=== PATIENT | male | born 1930 | race Caucasian/White ===

== ENCOUNTER → 2017-05-04 | Outpatient (CLI) | payer MEDICARE ==
--- NOTE | 2017-05-04 12:18 | US ---
EXAMINATION TYPE: US venous doppler duplex LE BI DATE OF EXAM: 05/04/2017 10:48 AM COMPARISON: NONE CLINICAL HISTORY: 87-year-old male M79.604 M79.605 Pain in bilateral legs. Bilateral diabetic foot ul cers x 2 months SIDE PERFORMED: Bilateral for venous insufficiency and DVT TECHNIQUE: The lower extremity deep venous system is examined utilizing real time linear array sonog taylor Doppler sonography and color-flow sonography. FINDINGS: VESSELS IMAGED: Common Femoral Vein Deep Femoral Vein Greater Saphenous Vein * Femoral Vein Popliteal Vein Small Saphenous Vein * Proximal Calf Veins (* superficial vessels) Right Leg: Negative for DVT. Valvular incompetency is noted throughout deep venous system except at Popliteal Vein and Upper Calf Veins. Left Leg: Stuck valve is noted at upper Left Femoral Vein, otherwise, is negative for DVT. Valvular incompetency noted throughout deep venous system except at upper Deep Femoral Vein. IMPRESSION: 1. No evidence for DVT within the bilateral lower extremities imaged from the groin to the upper calv es. 2. Extensive bilateral lower extremity venous insufficiency and reflux throughout as noted above. 3. 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
== END | disposition home or self-care (01) ==
LOC: RADUSWWP 09:51
PROVIDERS: ATTEND Internal Medicine Infectious Disease
DX: I87.2 Venous insufficiency (chronic) (peripheral) (principal)
CPT/HCPCS: 93922; 93970

== ENCOUNTER → 2017-05-26 | Outpatient (CLI) | payer MEDICARE ==
--- NOTE | 2017-05-26 12:39 | CT ---
EXAMINATION TYPE: CT pelvis wo con DATE OF EXAM: 05/26/2017 COMPARISON: NONE HISTORY: Pressure Ulcer Buttock CT DLP: [address] of the pelvis was performed. FINDINGS: There is small soft tissue ulceration right buttock. There is no evidence for underlying collection. Mild strandy attenuation is compatible with cellulitis. No evidence for abscess at this time. There i s evidence of prostate enlargement. Urinary bladder is unremarkable. Sigmoid diverticulosis without d iverticulitis. Nonobstructing calculus lower pole right kidney. Severe degenerative changes of the edith mbar spine and bilateral hips. IMPRESSION: There is small soft tissue ulceration right buttock. There is no evidence for underlying collection. Mild strandy attenuation is compatible with cellulitis.
== END | disposition home or self-care (01) ==
LOC: RADCTMAIN 11:47
PROVIDERS: ATTEND Surgery
DX: L89.313 Pressure ulcer of right buttock, stage 3 (principal)
CPT/HCPCS: 72192

== ENCOUNTER 2017-06-23 11:33 | Day surgery (SDC) | payer MEDICARE ==
[2017-06-17 11:17] VITALS: BMI 36.3
[~2017-06-23 11:33] MED LIST: DEXAMETHASONE SOD PHOSPHATE 10 MG/ML 1 ML VIAL IV ONE; HYDROmorphone 1 MG/ML 1 ML SYRINGE IVP PRN; LACTATED RINGERS 1,000 ML IV SCH; LIDOCAINE 1% 20 ML VIAL (10MG/ML) FOR IV START INTRADERMA PRN; MIDAZOLAM 2 MG/2 ML VIAL IV PRN; ONDANSETRON 4 MG/2 ML VIAL IVP ONE; Pre Op ABX Message 1 EACH MISC MISCELLANE ONE; SCOPOLAMINE 1.5MG/72HR PATCH TRANSDERM ONE
[2017-06-23] MEDS ORDERED: LACTATED RINGERS 1,000 ML IV ONE (11:51)
[2017-06-23 12:15] LABS: Glucose,Whole Blood 127 mg/dL (75-99)
[2017-06-23] MEDS ORDERED: HEPARIN SODIUM,PORCINE 5,000 UNIT/ML 1 ML VIAL SQ ONE (12:23)
[2017-06-23] MEDS ORDERED: LEVOFLOXACIN 500MG-D5W PMX 500 MG in DEXTROSE/WATER 1 100ML.BAG IVPB STA (12:24)
--- NOTE | 2017-06-23 12:24 | P.GSHP ---
History of Present Illness H&P Date: 06/23/17 Chief Complaint: decubitis ulcer of right upper back stage 3 Patient is a 87-year-old gentleman with a very poor history. He presents with multiple lower extremity ulcers as well as the back ulcer. His significant amount of pain in his back wound and does not recall how he got this wound. He is here for consultation for possible debridement. The patient at this time and not amenable to debridement for sampling at all. He's never seen a masticator in the past. - Review of Systems ROS unobtainable: Reports: due to mental status Past Medical History Past Medical History: Diabetes Mellitus, Hypertension Additional Past Medical History / Comment(s): gout, wound on rt hip area, History of Any Multi-Drug Resistant Organisms: None Reported Past Surgical History: Adenoidectomy, Tonsillectomy Additional Past Surgical History / Comment(s): hunter cataract extraction Past Anesthesia/Blood Transfusion Reactions: No Reported Reaction Smoking Status: Current every day smoker - Past Family History Father Family Medical History: Diabetes Mellitus Mother Family Medical History: Cancer Medications and Allergies Home Medications Medication Instructions Recorded Confirmed Type Allopurinol [Zyloprim] 300 mg PO DAILY 04/06/17 06/17/17 History Aspirin [Adult Low Dose Aspirin EC] 81 mg PO DAILY 04/06/17 06/17/17 History Atenolol 100 mg PO DAILY 04/06/17 06/17/17 History sitaGLIPtin PHOS/metFORMIN HCL 1 each PO BID 04/06/17 06/17/17 History [Janumet 50-1,000 mg Tablet] Calcium Carbonate [Calcium] 600 mg PO DAILY 06/17/17 06/17/17 History Multivitamins, Thera [Multivitamin 1 tab PO DAILY 06/17/17 06/17/17 History (formulary)] Allergies Allergy/AdvReac Type Severity Reaction Status Date / Time No Known Allergies Allergy Verified 06/17/17 11:06 Surgical - Exam Vital Signs Temp Pulse Resp BP Pulse Ox 97.8 F 76 18 113/75 98 06/23/17 11:49 06/23/17 11:49 06/23/17 11:49 06/23/17 11:49 06/23/17 11:49 - General well nourished, no distress - Eyes PERRL, normal ocular movement - ENT normal pinna - Respiratory normal expansion, normal respiratory effort - Abdomen right upper back has a 5 x 4 cm wound with signifcant amoutn of foul smelling slough Abdomen: soft Results - Labs Abnormal Lab Results - Last 24 Hours (Table) 06/23/17 Range/Units 12:05 POC Glucose (mg/dL) 127 H (75-99) mg/dL - Imaging Additional studies: culture sensitive to ciprofloxacin Assessment and Plan (1) Pressure ulcer, unstageable, with eschar Status: Acute Plan: The wound is imporving and had a wound vac in place. Will debride wound in the operating room today and then repalce wound vac. has been cleared by cardiology overall remains high risk
[2017-06-23] MEDS ORDERED: HEPARIN SODIUM,PORCINE 5,000 UNIT/ML 1 ML VIAL ONE (12:34)
[2017-06-23] MEDS ORDERED: PROPOFOL 10 MG/ML 20 ML VIAL IV ONE (12:34)
[2017-06-23] MEDS ORDERED: ePHEDrine SULFATE/0.9% NACL/PF 50 MG/5 ML SYRINGE IV ONE (12:34)
[2017-06-23] MEDS ORDERED: LIDOCAINE 1% INJ 10MG/ML (20 ML MDV) ONE (12:34)
[2017-06-23] MEDS ORDERED: fentaNYL (PF) 50 MCG/ML 2 ML AMP ONE (12:34)
[2017-06-23] MEDS ORDERED: BUPIVACAINE (PF) 0.25% 30 ML VIAL SQ ONE (12:50)
[2017-06-23 13:23] VITALS: TEMP 98.4
[2017-06-23 13:23] LABS: Glucose,Whole Blood 152 mg/dL (75-99)
--- NOTE | 2017-06-23 13:46 | P.OP ---
Date of Procedure: 06/23/17 Preoperative Diagnosis: Stage 3 decubitus ulcer of the right lower back Postoperative Diagnosis: Stage 3 decubitus ulcer of the right lower back Procedure(s) Performed: Sharp Excisional debridement of the wound with curette, metzenbaum and electrocautery and placement of Wound vac dressing. Implants: Condition: stable Disposition: PACU Indications for Procedure: Operative Findings: Necrotic fat and tissue extending to the fascia covering the bone Wound measured 2.6 x 1.6 x 1.6 with 3 cm undermining in the 1 oclock and 9 o clock position It was deep to the fascia covering the bone. Description of Procedure: After obtaining informed consent patient was taken to the operating room and placed in the left lateral decubitus position. After appropriate timeout, the patient was given IV sedation. The vac dressing was removed. The area was prepped and draped in the usual sterile surgical fashion. The necrotic material in the base was grabbed with and sita forceps and pulled up . The necrotic fatty tissue in the base was all excised meticulously with sharp metzenbaum, electrocautery, and currete. This debridement extended to the superficial part of the fasica covering the bone. The wound was then thoroughly irrigated and hemostasis was secured with electrocautery. The wound was then dresseded with 2 barrett sponges and vac was pllied with good suction and no leakage. the patient tolerated the procedure well and there were no complications. He was extubated and taken to recovery room in stable condition. Plan - Discharge Summary New Discharge Prescriptions: New Ciprofloxacin HCl [Cipro] 500 mg PO Q12HR #28 tablet No Action Atenolol 100 mg PO DAILY sitaGLIPtin PHOS/metFORMIN HCL [Janumet 50-1,000 mg Tablet] 1 each PO BID Aspirin [Adult Low Dose Aspirin EC] 81 mg PO DAILY Allopurinol [Zyloprim] 300 mg PO DAILY Multivitamins, Thera [Multivitamin (formulary)] 1 tab PO DAILY Calcium Carbonate [Calcium] 600 mg PO DAILY Discharge Medication List Allopurinol [Zyloprim] 300 mg PO DAILY 04/06/17 [History] Aspirin [Adult Low Dose Aspirin EC] 81 mg PO DAILY 04/06/17 [History] Atenolol 100 mg PO DAILY 04/06/17 [History] sitaGLIPtin PHOS/metFORMIN HCL [Janumet 50-1,000 mg Tablet] 1 each PO BID [History] Calcium Carbonate [Calcium] 600 mg PO DAILY 06/17/17 [History] Multivitamins, Thera [Multivitamin (formulary)] 1 tab PO DAILY 06/17/17 [History ] Ciprofloxacin HCl [Cipro] 500 mg PO Q12HR #28 tablet 06/23/17 [Rx] Follow up Appointment(s)/Referral(s): Alexys Ortiz MD [STAFF PHYSICIAN] - 1 Week (in wound care clinic) Activity/Diet/Wound Care/Special Instructions: regular diet Discharge Disposition: OTHER INSTITUTION NOT DEFINED
[2017-06-23 14:05] VITALS: BP 98/57; PULSE 81; RESP 16
== END 2017-06-23 14:55 | disposition other institution (70) ==
LOC: OR 11:33
PROVIDERS: ATTEND Surgery
DX: L89.133 Pressure ulcer of right lower back, stage 3 (principal); I10 Essential (primary) hypertension; E11.9 Type 2 diabetes mellitus without complications; Z79.84 Long term (current) use of oral hypoglycemic drugs; K21.9 Gastro-esophageal reflux disease without esophagitis; M10.9 Gout, unspecified; I25.2 Old myocardial infarction; Z79.82 Long term (current) use of aspirin; Z79.899 Other long term (current) drug therapy
CPT/HCPCS: 84132; 87070; 87205; 87075; 87077; 87186; 11043; J1644; J1100; J2405; J1956; J2001; J3010; J2704

== ENCOUNTER 2018-01-14 10:50 | Inpatient (IN) | payer MEDICARE ==
--- NOTE | 2018-01-14 11:21 | ED ---
General Adult HPI - General Stated complaint: weakness Time Seen by Provider: 01/14/18 10:50 Source: RN notes reviewed - History of Present Illness Initial comments: This is an 87-year-old male who presents to the emergency department complaining of generalized weakness. Patient states she's unable family started getting weak last night but this morning was unable to ambulate as his legs gave out. Patient denies any pain. Patient denies headache patient denies numbness weakness. Patient denies lightheadedness dizziness or near syncopal episode. Patient denies chest pain difficulty breathing first breath per patient denies abdominal pain patient denies nausea vomiting diarrhea. Patient denies any recent injury or trauma. - Related Data Home Medications Medication Instructions Recorded Confirmed Allopurinol [Zyloprim] 300 mg PO DAILY 04/06/17 01/14/18 Atenolol 100 mg PO DAILY 04/06/17 01/14/18 sitaGLIPtin PHOS/metFORMIN HCL 1 tab PO BID 04/06/17 01/14/18 [Janumet 50-1,000 mg Tablet] Atorvastatin [Lipitor] 10 mg PO DAILY 01/14/18 01/14/18 Allergies Allergy/AdvReac Type Severity Reaction Status Date / Time No Known Allergies Allergy Verified 09/21/17 10:05 Review of Systems ROS Statement: Those systems with pertinent positive or pertinent negative responses have been documented in the HPI. ROS Other: All systems not noted in ROS Statement are negative. Past Medical History Past Medical History: Diabetes Mellitus, Hypertension Additional Past Medical History / Comment(s): gout, wound on rt hip area, History of Any Multi-Drug Resistant Organisms: None Reported Past Surgical History: Adenoidectomy, Tonsillectomy Additional Past Surgical History / Comment(s): hunter cataract extraction Past Anesthesia/Blood Transfusion Reactions: No Reported Reaction Past Alcohol Use History: None Reported Additional Past Alcohol Use History / Comment(s): started smoking cigars since age 11, currently using pipe-"couple daily" Past Drug Use History: None Reported - Past Family History Father Family Medical History: Diabetes Mellitus Mother Family Medical History: Cancer General Exam - General Exam Comments Initial Comments: GENERAL: Patient is well-developed and well-nourished. Patient is nontoxic and well- hydrated and is in no acute distress. ENT: Neck is soft and supple. No significant lymphadenopathy is noted. Oropharynx is clear. Moist mucous membranes. Neck has full range of motion without eliciting any pain. EYES: The sclera were anicteric and conjunctiva were pink and moist. Extraocular movements were intact and pupils were equal round and reactive to light. Eyelids were unremarkable. PULMONARY: Unlabored respirations. Good breath sounds bilaterally. No audible rales rhonchi or wheezing was noted. CARDIOVASCULAR: There is a regular rate and rhythm without any murmurs gallops or rubs. ABDOMEN: Soft and nontender with normal bowel sounds. No palpable organomegaly was noted. There is no palpable pulsatile mass. SKIN: Patient has a stage II wound on his left buttocks which she is appears to have some cellulitis around it as well. NEUROLOGIC: Patient is alert and oriented x3. Cranial nerves II through XII are grossly intact. Motor and sensory are also intact. Normal speech, volume and content. Symmetrical smile. MUSCULOSKELETAL: Normal extremities with adequate strength and full range of motion. 2+ edema bilaterally LYMPHATICS: No significant lymphadenopathy is noted PSYCHIATRIC: Normal psychiatric evaluation. Course Vital Signs 01/14/18 01/14/18 11:00 14:10 Temperature 94.5 F L Pulse Rate 71 53 L Respiratory 18 20 Rate Blood Pressure 113/65 114/71 O2 Sat by Pulse 98 97 Oximetry Medical Decision Making - Lab Data Result diagrams: 01/14/18 11:46 01/14/18 11:46 Lab Results 01/14/18 01/14/18 01/14/18 Range/Units 11:44 11:46 11:46 WBC 4.7 (3.8-10.6) k/uL RBC 3.95 L (4.30-5.90) m/uL Hgb 10.8 L (13.0-17.5) gm/dL Hct 34.4 L (39.0-53.0) % MCV 87.0 (80.0-100.0) fL MCH 27.4 (25.0-35.0) pg MCHC 31.5 (31.0-37.0) g/dL RDW 16.9 H (11.5-15.5) % Plt Count 200 (150-450) k/uL Hypochromasia Slight Anisocytosis Slight PT (9.0-12.0) sec INR (<1.2) APTT (22.0-30.0) sec Sodium 138 (137-145) mmol/L Potassium 4.8 (3.5-5.1) mmol/L Chloride 100 (98-107) mmol/L Carbon Dioxide 31 H (22-30) mmol/L Anion Gap 7 mmol/L BUN 38 H (9-20) mg/dL Creatinine 0.72 (0.66-1.25) mg/dL Est GFR (CKD-EPI)AfAm >90 (>60 ml/min/1.73 sqM) Est GFR (CKD-EPI)NonAf 84 (>60 ml/min/1.73 sqM) Glucose 170 H (74-99) mg/dL Plasma Lactic Acid Brandon 2.1 H* (0.7-2.0) mmol/L Calcium 9.3 (8.4-10.2) mg/dL Magnesium 1.8 (1.6-2.3) mg/dL Total Bilirubin 0.3 (0.2-1.3) mg/dL AST 49 (17-59) U/L ALT 49 (21-72) U/L Alkaline Phosphatase 107 (38-126) U/L Total Creatine Kinase (55-170) U/L CK-MB (CK-2) (0.0-2.4) ng/mL CK-MB (CK-2) Rel Index Total Protein 7.0 (6.3-8.2) g/dL Albumin 3.0 L (3.5-5.0) g/dL 01/14/18 01/14/18 Range/Units 11:46 11:46 WBC (3.8-10.6) k/uL RBC (4.30-5.90) m/uL Hgb (13.0-17.5) gm/dL Hct (39.0-53.0) % MCV (80.0-100.0) fL MCH (25.0-35.0) pg MCHC (31.0-37.0) g/dL RDW (11.5-15.5) % Plt Count (150-450) k/uL Hypochromasia Anisocytosis PT 11.2 (9.0-12.0) sec INR 1.2 H (<1.2) APTT 25.8 (22.0-30.0) sec Sodium (137-145) mmol/L Potassium (3.5-5.1) mmol/L Chloride (98-107) mmol/L Carbon Dioxide (22-30) mmol/L Anion Gap mmol/L BUN (9-20) mg/dL Creatinine (0.66-1.25) mg/dL Est GFR (CKD-EPI)AfAm (>60 ml/min/1.73 sqM) Est GFR (CKD-EPI)NonAf (>60 ml/min/1.73 sqM) Glucose (74-99) mg/dL Plasma Lactic Acid Brandon (0.7-2.0) mmol/L Calcium (8.4-10.2) mg/dL Magnesium (1.6-2.3) mg/dL Total Bilirubin (0.2-1.3) mg/dL AST (17-59) U/L ALT (21-72) U/L Alkaline Phosphatase (38-126) U/L Total Creatine Kinase 89 (55-170) U/L CK-MB (CK-2) 5.2 H* (0.0-2.4) ng/mL CK-MB (CK-2) Rel Index 5.8 Total Protein (6.3-8.2) g/dL Albumin (3.5-5.0) g/dL Disposition Clinical Impression: Decubitus ulcer, stage 2 with infection Disposition: ADMITTED IP TO THIS HOSP Referrals: Washington Hatfield MD [Primary Care Provider] - 1-2 days Time of Disposition: 14:45
[2018-01-14] MEDS ORDERED: SODIUM CHLORIDE 0.9% 500 ML IV ONE (12:30)
[2018-01-14] MEDS ORDERED: LEVOFLOXACIN 750MG-D5W PMX 750 MG in DEXTROSE/WATER 1 150ML.BAG IVPB STA (12:49)
[2018-01-14 13:06] LABS: Anisocytosis Slight; HCT 34.4 % (39.0-53.0); HGB 10.8 gm/dL (13.0-17.5); Hypochromasia Slight; MCH 27.4 pg (25.0-35.0); MCHC 31.5 g/dL (31.0-37.0); Mean Platelet Volume 7.9; Platelet Count 200 k/uL (150-450); RBC 3.95 m/uL (4.30-5.90); RDW 16.9 % (11.5-15.5); WBC 4.7 k/uL (3.8-10.6)
--- NOTE | 2018-01-14 13:06 | XR ---
EXAMINATION TYPE: XR pelvis AP view DATE OF EXAM: 01/14/2018 COMPARISON: NONE HISTORY: Pain The osseous structures are intact and there is severe arthropathy of the shoulders. There is severe d egenerative change lower lumbar spine. Vascular calcifications are noted. Retained fecal debris in th e colon. No acute fracture is seen. Visualized bowel gas pattern is nonspecific. IMPRESSION: 1. No acute fracture. Correlate for fecal impaction. 2. Severe arthropathy of the hips
[2018-01-14 13:08] LABS: ALT 49 U/L (21-72); AST 49 U/L (17-59); Alkaline Phosphatase 107 U/L (38-126); Anion Gap 7 mmol/L; Blood Urea Nitrogen 38 mg/dL (9-20); Calcium 9.3 mg/dL (8.4-10.2); Carbon Dioxide 31 mmol/L (22-30); Chloride 100 mmol/L (98-107); Glucose 170 mg/dL (74-99); Magnesium 1.8 mg/dL (1.6-2.3); Potassium 4.8 mmol/L (3.5-5.1); Sodium 138 mmol/L (137-145); Total Bilirubin 0.3 mg/dL (0.2-1.3)
[2018-01-14 13:15] LABS: INR 1.2 (<1.2); Partial Thromboplastin Time 25.8 sec (22.0-30.0); Prothrombin Time 11.2 sec (9.0-12.0)
[2018-01-14 13:34] LABS: Creatine Kinase MB 5.2 ng/mL (0.0-2.4)
[2018-01-14] MEDS ORDERED: SODIUM CHLORIDE 0.9% 1,000 ML IV ONE (14:45)
[2018-01-14 18:26] LABS: T4, Free (Free Thyroxine) 1.49 ng/dL (0.78-2.19)
[2018-01-14 19:03] LABS: Glucose,Whole Blood 85 mg/dL (75-99)
[2018-01-14] MEDS ORDERED: PNEUMOCOCCAL VACC-PNEUMOVAX 23 25 MCG/0.5 ML VIAL IM ONE (19:59)
[2018-01-14] MEDS: LEVOFLOXACIN 750MG-D5W PMX 750 MG in DEXTROSE/WATER 1 150ML.BAG IVPB SCH (20:37)
[2018-01-14] MEDS ORDERED: NALOXONE 0.4 MG/ML 1 ML VIAL IV PRN (22:21)
[2018-01-14 22:45] LABS: Appearance,Urine Clear (Clear); Bilirubin,Urine Negative (Negative); Blood,Urine Negative (Negative); Color,Urine Yellow; Glucose,Urine (UA) Negative (Negative); Ketones,Urine Negative (Negative); Leukocyte Esterase,Urine Negative (Negative); Nitrite,Urine Negative (Negative); PH, Urine 6.5 (5.0-8.0); Protein,Urine Negative (Negative); Specific Gravity,Urine 1.018 (1.001-1.035); Urobilinogen,Urine <2.0 mg/dL (<2.0)
[2018-01-15 05:04] LABS: Anisocytosis Slight; Basophils % (A) 1 %; Eosinophils # (A) 0.1 k/uL (0-0.7); Eosinophils % (A) 2 %; HCT 32.1 % (39.0-53.0); HGB 10.3 gm/dL (13.0-17.5); Hypochromasia Slight; Lymphocytes # (A) 0.8 k/uL (1.0-4.8); Lymphocytes % (A) 20 %; MCH 27.9 pg (25.0-35.0); MCHC 32.1 g/dL (31.0-37.0); MCV 86.9 fL (80.0-100.0); Mean Platelet Volume 7.5; Monocytes # (A) 0.3 k/uL (0-1.0); Monocytes % (A) 7 %; Neutrophils # (A) 2.8 k/uL (1.3-7.7); Neutrophils % (A) 69 %; Platelet Count 184 k/uL (150-450); RDW 16.5 % (11.5-15.5); WBC 4.1 k/uL (3.8-10.6)
[2018-01-15 05:17] LABS: Magnesium 1.8 mg/dL (1.6-2.3); Phosphorus 3.6 mg/dL (2.5-4.5); Potassium 5.1 mmol/L (3.5-5.1)
[2018-01-15] MEDS: SODIUM CHLORIDE 0.9% 1,000 ML IV SCH ×3 (08:39→23:46)
[2018-01-15] MEDS: PANTOPRAZOLE 40 MG/10 ML VIAL IVP SCH (09:02)
[2018-01-15] MEDS: ENOXAPARIN 40 MG/0.4 ML SYRINGE SQ SCH (09:02)
[2018-01-15 10:25] VITALS: BMI 26.6
--- NOTE | 2018-01-15 12:33 | P.HPIM ---
History of Present Illness H&P Date: 01/15/18 Chief Complaint: Weakness and falls This is a 87-year-old male with a known history of diabetes mellitus, hypertension, gout, bilateral feet ulcers and decubitus ulcer of the buttocks. Patient initially presented to the emergency room with generalized weakness, some confusion and falling. Also had evidence of hypothermia. Required admission to the ICU. Hypothermia has resolved. Patient was started on Levaquin for his infected decubitus stage II ulcer. Infectious disease been consulted. Wound cultures have been obtained. Patient had a pelvic x-ray completed no evidence of fractures. Does show some fecal impaction. Urinalysis is negative. Patient is also been hypotensive his atenolol as been on hold and has been placed IV fluids. Pulmonary is been consulted for ICU management. Patient denies any chest pain or shortness breath. Denies any nausea or vomiting. Denies any urinary symptoms. He reports he had some diarrhea couple days ago but then has not had a bowel movement since. Denies Any abdominal pain. Review of Systems Please refer to HPI otherwise unremarkable Past Medical History Past Medical History: Diabetes Mellitus, Hyperlipidemia, Hypertension Additional Past Medical History / Comment(s): gout, past wound on rt hip/back area, foot. diverticular disease sigmoid region per [address] scan History of Any Multi-Drug Resistant Organisms: None Reported Past Surgical History: Adenoidectomy, Tonsillectomy Additional Past Surgical History / Comment(s): hunter cataract extraction, 06/2017 surgical excisonal debridment of stage 3 decub ulcer rt lower back Past Anesthesia/Blood Transfusion Reactions: No Reported Reaction Smoking Status: Current every day smoker - Past Family History Father Family Medical History: Diabetes Mellitus Mother Family Medical History: Cancer Medications and Allergies Home Medications Medication Instructions Recorded Confirmed Type Allopurinol [Zyloprim] 300 mg PO DAILY 04/06/17 01/14/18 History Atenolol 100 mg PO DAILY 04/06/17 01/14/18 History sitaGLIPtin PHOS/metFORMIN HCL 1 tab PO BID 04/06/17 01/14/18 History [Janumet 50-1,000 mg Tablet] Atorvastatin [Lipitor] 10 mg PO DAILY 01/14/18 01/14/18 History Allergies Allergy/AdvReac Type Severity Reaction Status Date / Time No Known Allergies Allergy Verified 01/14/18 22:20 Physical Exam Vitals: Vital Signs Temp Pulse Pulse Resp BP BP Pulse Ox 01/15/18 10:00 70 23 97/61 92 L 01/15/18 09:00 68 20 97/63 95 01/15/18 08:00 97.7 F 64 20 89/64 97 01/15/18 07:00 61 19 94/55 100 01/15/18 06:00 64 18 91/59 97 01/15/18 05:00 65 20 90/67 97 01/15/18 04:00 97.8 F 66 17 98/66 97 01/15/18 03:00 69 22 93/63 98 01/15/18 02:00 72 20 97/61 97 01/15/18 01:00 75 16 97/61 96 01/15/18 00:00 99.0 F 72 16 92/62 97 01/14/18 23:30 72 20 94/60 97 01/14/18 23:00 72 20 94/60 98 01/14/18 22:00 98.6 F 72 22 87/58 97 01/14/18 21:00 70 18 88/55 98 01/14/18 20:00 97.7 F 66 20 104/62 95 01/14/18 19:04 97.0 F L 54 L 18 110/70 98 01/14/18 19:00 95.9 F L 68 22 102/64 95 01/14/18 18:18 96.6 F L 58 L 18 108/67 95 01/14/18 16:52 93.7 F L 51 L 16 99/66 98 01/14/18 16:05 93.8 F L 01/14/18 16:04 52 L 16 100/66 97 01/14/18 15:26 95.3 F L 53 L 16 104/67 98 01/14/18 14:10 53 L 20 114/71 97 Intake and Output 01/14/18 01/15/18 01/15/18 22:59 06:59 14:59 Intake Total 520 800 700 Output Total 850 Balance -330 800 700 Intake: IV 400 800 450 Sodium Chloride 0.9% 1, 400 800 450 000 ml @ 100 mls/hr IV . Q10H ONE Rx#:[id number] Oral 120 250 Output: Urine 850 Other: Voiding Method Urinal Incontinent Incontinent # Voids 1 Weight 93.4 kg 94.1 kg 94.1 kg Head normocephalic Neck supple Lungs clear to auscultation bilaterally no wheezing or crackles Heart regular rate and rhythm S1-S2, no rub or gallop Abdomen is soft nontender nondistended positive bowel sounds no hepatosplenomegaly Extremities no edema on the legs. Patient's feet have evidence of cellulitis changes some chronic ulcers noted on the plantar aspect of the feet. No evidence of any drainage. Some mild swelling of the feet 2. Also patient has worked with physical therapy and his feet have been hanging down there is some purplish discoloration. When leg is elevated purplish discoloration improved. Neuro alert and orientated to 3 Results CBC & Chem 7: 01/15/18 04:36 01/15/18 04:36 Labs: Abnormal Lab Results - Last 24 Hours (Table) 01/14/18 01/14/18 01/14/18 Range/Units 11:44 11:46 11:46 RBC 3.95 L (4.30-5.90) m/uL Hgb 10.8 L (13.0-17.5) gm/dL Hct 34.4 L (39.0-53.0) % RDW 16.9 H (11.5-15.5) % Lymphocytes # (1.0-4.8) k/uL INR (<1.2) Carbon Dioxide 31 H (22-30) mmol/L BUN 38 H (9-20) mg/dL Glucose 170 H (74-99) mg/dL Plasma Lactic Acid Brandon 2.1 H* (0.7-2.0) mmol/L CK-MB (CK-2) (0.0-2.4) ng/mL Albumin 3.0 L (3.5-5.0) g/dL TSH (0.465-4.680) mIU/L 01/14/18 01/14/18 01/14/18 Range/Units 11:46 11:46 11:46 RBC (4.30-5.90) m/uL Hgb (13.0-17.5) gm/dL Hct (39.0-53.0) % RDW (11.5-15.5) % Lymphocytes # (1.0-4.8) k/uL INR 1.2 H (<1.2) Carbon Dioxide (22-30) mmol/L BUN (9-20) mg/dL Glucose (74-99) mg/dL Plasma Lactic Acid Brandon (0.7-2.0) mmol/L CK-MB (CK-2) 5.2 H* (0.0-2.4) ng/mL Albumin (3.5-5.0) g/dL TSH 5.720 H (0.465-4.680) mIU/L 01/15/18 01/15/18 Range/Units 04:36 04:36 RBC 3.70 L (4.30-5.90) m/uL Hgb 10.3 L (13.0-17.5) gm/dL Hct 32.1 L (39.0-53.0) % RDW 16.5 H (11.5-15.5) % Lymphocytes # 0.8 L (1.0-4.8) k/uL INR (<1.2) Carbon Dioxide 31 H (22-30) mmol/L BUN 36 H (9-20) mg/dL Glucose (74-99) mg/dL Plasma Lactic Acid Brandon (0.7-2.0) mmol/L CK-MB (CK-2) (0.0-2.4) ng/mL Albumin (3.5-5.0) g/dL TSH (0.465-4.680) mIU/L Microbiology - Last 24 Hours (Table) 01/14/18 22:00 Urine Culture - Preliminary Urine,Clean Catch 01/14/18 12:40 Gram Stain - Preliminary Buttock Wound Culture - Preliminary Presumptive Staph aureus 01/14/18 12:40 Anaerobic Culture - Preliminary Buttock Thrombosis Risk Factor Assmnt - Choose All That Apply Any of the Below Risk Factors Present?: Yes Each Factor Represents 1 point: Medical pt on bed rest, Obesity (BMI >25), Swollen legs (current) Other Risk Factors: Yes Each Risk Factor Represents 2 Points: Patient confined to bed Each Risk Factor Represents 3 Points: Age 75 years or older Other congenital or acquired thrombophilia - If yes, enter type in comment: No Thrombosis Risk Factor Assessment Total Risk Factor Score: 8 Thrombosis Risk Factor Assessment Level: High Risk Assessment and Plan Assessment: 1. Generalized weakness with falls likely secondary to his acute infection. Physical therapy was consulted. No evidence of pelvic fracture 2. Stage II infected decubitus ulcer: Wound cultures obtained. Patient started on IV Levaquin in the emergency room. Infectious disease consulted 3. Evidence of sepsis and septic shock present on admission with hypothermia and hypotension. Patient is sitting IV fluids normal saline 125 4. Diabetes mellitus: Blood sugar on the lower side his morning around 85. Will displace it patient on sliding scale and hold oral hypoglycemics for now 5. History of essential hypertension. As stated above blood pressure is on the lower side we'll hold atenolol for now 6. Fecal impaction noted on pelvic x-ray. We'll give Colace and lactulose 7. Hyperlipidemia continue Lipitor 8. Gout resume allopurinol GI prophylaxis Protonix and DVT prophylaxis Lovenox Time with Patient: Greater than 30
[2018-01-15 12:45] LABS: Hemoglobin A1C 7.1 % (4.0-6.0)
[2018-01-15] MEDS ORDERED: LACTULOSE 20 GM/30 ML CUP PO ONE (12:45)
[2018-01-15] MEDS: ATORVASTATIN 10 MG TAB PO SCH (13:03)
[2018-01-15] MEDS: INSULIN ASPART 100 UNIT/ML 1 ML 10 ML VIAL SQ SCH ×3 (13:03→21:36)
[2018-01-15] MEDS: LEVOFLOXACIN 750MG-D5W PMX 750 MG in DEXTROSE/WATER 1 150ML.BAG IVPB SCH (13:04)
[2018-01-15] MEDS: DOCUSATE 100 MG CAP PO SCH ×2 (13:04→21:36)
[2018-01-15 13:20] LABS: Glucose,Whole Blood 119 mg/dL (75-99)
[2018-01-15] MEDS ORDERED: VANCOMYCIN IV PER PHARMACY 1 EACH MISC MISCELLANE PRN (13:24)
--- NOTE | 2018-01-15 13:59 | P.CNPUL ---
History of Present Illness Consult date: 01/15/18 Requesting physician: Destiny Mathias Reason for consult: other (ICU management, patient presented with weakness, frequent falls, lower extremity cellulitis, and hypothermia.) Chief complaint: Weakness and falls. History of present illness: This is an 87-year-old white male with history of diabetes, hypertension, chronic decubitus ulcers, chronic cellulitis of lower extremities, normally followed at the [facility], patient had previous debridement by Dr. Ba. The patient was brought into the ER yesterday mostly with complaints of generalized weakness, confusion, and intermittent episodes of falling. Workup in the ER showed relatively normal CBC. Normal electrolytes. Normal renal profile. Normal urinalysis. Normal lactic acid. However the patient was significantly weak, and he was hypothermic. In spite of of warming blankets , his temp remained in the range of 93. Hence arrangements were made to admit the patient to the ICU and I was asked to see him on consultation. Patient denies any shortness of breath, no cough, no wheezing, he is not a greatest historian, but he seems to be generally weak, and slightly confused. Review of Systems Review of systems cannot be obtained mostly because of his mental status, confusion, and no family members available at bedside. ROS unobtainable: due to mental status Past Medical History Past Medical History: Diabetes Mellitus, Hyperlipidemia, Hypertension Additional Past Medical History / Comment(s): gout, past wound on rt hip/back area, foot. diverticular disease sigmoid region per [address] scan History of Any Multi-Drug Resistant Organisms: None Reported Past Surgical History: Adenoidectomy, Tonsillectomy Additional Past Surgical History / Comment(s): hunter cataract extraction, 06/2017 surgical excisonal debridment of stage 3 decub ulcer rt lower back Past Anesthesia/Blood Transfusion Reactions: No Reported Reaction Smoking Status: Current every day smoker - Past Family History Father Family Medical History: Diabetes Mellitus Mother Family Medical History: Cancer Medications and Allergies Home Medications Medication Instructions Recorded Confirmed Type Allopurinol [Zyloprim] 300 mg PO DAILY 04/06/17 01/14/18 History Atenolol 100 mg PO DAILY 04/06/17 01/14/18 History sitaGLIPtin PHOS/metFORMIN HCL 1 tab PO BID 04/06/17 01/14/18 History [Janumet 50-1,000 mg Tablet] Atorvastatin [Lipitor] 10 mg PO DAILY 01/14/18 01/14/18 History Allergies Allergy/AdvReac Type Severity Reaction Status Date / Time No Known Allergies Allergy Verified 01/14/18 22:20 Physical Exam Vitals: Vital Signs Temp Pulse Pulse Resp BP BP Pulse Ox 01/15/18 10:00 70 23 97/61 92 L 01/15/18 09:00 68 20 97/63 95 01/15/18 08:00 97.7 F 64 20 89/64 97 01/15/18 07:00 61 19 94/55 100 01/15/18 06:00 64 18 91/59 97 01/15/18 05:00 65 20 90/67 97 01/15/18 04:00 97.8 F 66 17 98/66 97 01/15/18 03:00 69 22 93/63 98 01/15/18 02:00 72 20 97/61 97 01/15/18 01:00 75 16 97/61 96 01/15/18 00:00 99.0 F 72 16 92/62 97 01/14/18 23:30 72 20 94/60 97 01/14/18 23:00 72 20 94/60 98 01/14/18 22:00 98.6 F 72 22 87/58 97 01/14/18 21:00 70 18 88/55 98 01/14/18 20:00 97.7 F 66 20 104/62 95 01/14/18 19:04 97.0 F L 54 L 18 110/70 98 01/14/18 19:00 95.9 F L 68 22 102/64 95 01/14/18 18:18 96.6 F L 58 L 18 108/67 95 01/14/18 16:52 93.7 F L 51 L 16 99/66 98 01/14/18 16:05 93.8 F L 01/14/18 16:04 52 L 16 100/66 97 01/14/18 15:26 95.3 F L 53 L 16 104/67 98 01/14/18 14:10 53 L 20 114/71 97 Intake and Output 01/14/18 01/15/18 01/15/18 22:59 06:59 14:59 Intake Total 520 800 700 Output Total 850 Balance -330 800 700 Intake: IV 400 800 450 Sodium Chloride 0.9% 1, 400 800 450 000 ml @ 100 mls/hr IV . Q10H ONE Rx#:[id number] Oral 120 250 Output: Urine 850 Other: Voiding Method Urinal Incontinent Incontinent # Voids 1 Weight 93.4 kg 94.1 kg 94.1 kg GENERAL: Physical examination revealed an 87-year-old white male, looks frail, chronically ill, in no form of respiratory distress. ENT: Neck is soft and supple. No neck masses, no JVD, slightly dry mucous membranes , no neck rigidity was appreciated. EYES: PERRLA, EOMI, no icterus. PULMONARY: Unlabored respirations. No crackles, no rhonchi, no wheezes, diminished breath sounds at the bases. CARDIOVASCULAR: Normal S1 and S2, no S3 gallop, 2/6 systolic murmur thought the precordium. ABDOMEN: Soft, nontender, no megaly, no rebound, no guarding, positive bowel sounds. SKIN: Patient has a stage II wound on his left buttocks areas of cellulitis noted in the feet bilaterally. And multiple superficial ulcerations noted. NEUROLOGIC: Patient is slightly confused, otherwise no gross focal neurologic deficit. Patient did not know the year, did not know the month, and he felt that he was at his doctor's office. MUSCULOSKELETAL: Normal extremities with adequate strength and full range of motion. 1+ bipedal edema. LYMPHATICS: No significant lymphadenopathy is noted PSYCHIATRIC: Slightly confused otherwise unremarkable. Results - Laboratory Findings CBC and BMP: 01/15/18 04:36 01/15/18 04:36 PT/INR, D-dimer PT 11.2 sec (9.0-12.0) 01/14/18 11:46 INR 1.2 (<1.2) H 01/14/18 11:46 Abnormal lab findings: Abnormal Labs 01/14/18 01/14/18 01/14/18 11:44 11:46 11:46 RBC 3.95 L Hgb 10.8 L Hct 34.4 L RDW 16.9 H Lymphocytes # INR Carbon Dioxide 31 H BUN 38 H Glucose 170 H POC Glucose (mg/dL) Hemoglobin A1c Plasma Lactic Acid Brandon 2.1 H* CK-MB (CK-2) Albumin 3.0 L TSH 01/14/18 01/14/18 01/14/18 11:46 11:46 11:46 RBC Hgb Hct RDW Lymphocytes # INR 1.2 H Carbon Dioxide BUN Glucose POC Glucose (mg/dL) Hemoglobin A1c Plasma Lactic Acid Brandon CK-MB (CK-2) 5.2 H* Albumin TSH 5.720 H 01/15/18 01/15/18 01/15/18 04:36 04:36 04:36 RBC 3.70 L Hgb 10.3 L Hct 32.1 L RDW 16.5 H Lymphocytes # 0.8 L INR Carbon Dioxide 31 H BUN 36 H Glucose POC Glucose (mg/dL) Hemoglobin A1c 7.1 H Plasma Lactic Acid Brandon CK-MB (CK-2) Albumin TSH 01/15/18 12:59 RBC Hgb Hct RDW Lymphocytes # INR Carbon Dioxide BUN Glucose POC Glucose (mg/dL) 119 H Hemoglobin A1c Plasma Lactic Acid Brandon CK-MB (CK-2) Albumin TSH - Diagnostic Findings Additional studies: X-rays of the pelvis were noted, no acute fracture, and 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 Assessment and Plan Assessment: Impression: 1 acute generalized weakness, multifactorial, however I believe the patient clearly has ongoing cellulitis related to his stage II infected decubitus ulcer and cellulitis of the feet bilaterally. Strongly doubt sepsis. 2 acute hypothermia, most likely related to his cellulitis and age, plus exposure. Again strongly doubt sepsis, and strongly doubt and renal insufficiency or hypothyroidism. However diagnostic workup is in progress. Patient had no evidence of hemodynamic instability, had normal lactic acid, relatively normal renal profile, and no evidence of end organ damage. 3: Multiple medical problems including diabetes, hypertension, medical debility , history of gout, and remote smoking history. Recommendation: I fully agree with the present treatment plan including antibiotics, supportive care measures, patient does not need to be in the ICU at present, will transfer to a regular medical floor, and will follow on when necessary basis. Time with Patient: Greater than 30
[2018-01-15] MEDS ORDERED: VANCOMYCIN 1,750 MG in SODIUM CHLORIDE 0.9% 250 ML IVPB ONE (14:00)
[2018-01-15 17:26] LABS: Glucose,Whole Blood 120 mg/dL (75-99)
[2018-01-15 20:13] LABS: Iron Saturation 10.61 (15.00-50.00)
[2018-01-15 20:43] LABS: Glucose,Whole Blood 245 mg/dL (75-99)
[2018-01-15] MEDS: VANCOMYCIN 1,500 MG in SODIUM CHLORIDE 0.9% 250 ML IVPB SCH (23:45)
[2018-01-16] MEDS: LEVOTHYROXINE 25 MCG TAB PO SCH (06:29)
[2018-01-16 07:30] LABS: Glucose,Whole Blood 100 mg/dL (75-99)
[2018-01-16] MEDS: INSULIN ASPART 100 UNIT/ML 1 ML 10 ML VIAL SQ SCH ×4 (07:32→21:39)
[2018-01-16 08:22] LABS: Anisocytosis Slight; Basophils % (A) 0 %; Eosinophils # (A) 0.2 k/uL (0-0.7); Eosinophils % (A) 4 %; HCT 32.2 % (39.0-53.0); Hypochromasia Moderate; Lymphocytes % (A) 21 %; MCH 27.7 pg (25.0-35.0); MCHC 31.1 g/dL (31.0-37.0); MCV 89.1 fL (80.0-100.0); Mean Platelet Volume 7.7; Monocytes # (A) 0.3 k/uL (0-1.0); Monocytes % (A) 7 %; Neutrophils % (A) 65 %; Platelet Count 154 k/uL (150-450); RBC 3.61 m/uL (4.30-5.90); RDW 16.9 % (11.5-15.5); WBC 4.6 k/uL (3.8-10.6)
[2018-01-16] MEDS: ALLOPURINOL 300 MG TAB PO SCH (08:24)
[2018-01-16] MEDS: ENOXAPARIN 40 MG/0.4 ML SYRINGE SQ SCH (08:24)
[2018-01-16] MEDS: DOCUSATE 100 MG CAP PO SCH ×2 (08:24→21:39)
[2018-01-16] MEDS: PANTOPRAZOLE 40 MG/10 ML VIAL IVP SCH (08:24)
[2018-01-16] MEDS: ATORVASTATIN 10 MG TAB PO SCH (08:24)
[2018-01-16] MEDS: SODIUM CHLORIDE 0.9% 1,000 ML IV SCH ×2 (08:25→15:27)
[2018-01-16 08:41] LABS: Calcium 8.9 mg/dL (8.4-10.2); Magnesium 1.9 mg/dL (1.6-2.3); Phosphorus 3.8 mg/dL (2.5-4.5); Potassium 4.9 mmol/L (3.5-5.1)
[2018-01-16] MEDS: VANCOMYCIN 1,500 MG in SODIUM CHLORIDE 0.9% 250 ML IVPB SCH ×2 (11:20→23:51)
[2018-01-16 12:16] LABS: Glucose,Whole Blood 191 mg/dL (75-99)
[2018-01-16] MEDS: COLLAGENASE 250 UNIT/GM OINTMENT 30 GM TUBE TOPICAL SCH (14:33)
[2018-01-16] MEDS: LEVOFLOXACIN 750MG-D5W PMX 750 MG in DEXTROSE/WATER 1 150ML.BAG IVPB SCH (14:33)
--- NOTE | 2018-01-16 15:24 | P.PN ---
Subjective No events overnight Objective - Vital Signs Vital signs: Vital Signs Temp 97.4 F L 01/16/18 06:35 Pulse 67 01/16/18 06:35 Resp 24 01/16/18 06:35 BP 97/64 01/16/18 06:35 Pulse Ox 92 L 01/16/18 06:35 Intake & Output 01/15/18 01/16/18 01/16/18 18:59 06:59 18:59 Intake Total 1100 320 Output Total 0 700 Balance 1100 -700 320 Weight 94.1 kg Intake: IV 850 Sodium Chloride 0.9% 1, 850 000 ml @ 100 mls/hr IV . Q10H ONE Rx#:[id number] Oral 250 320 Output: Urine 0 700 Other: Voiding Method Incontinent Incontinent Incontinent # Voids 2 1 # Bowel Movements 1 - Exam General: The patient is awake and alert, in no distress Eye: there is normal conjunctiva bilaterally. Neck: The neck is supple, there is no JVD. Cardiovascular: Normal S1-S2, no S3-S4, no murmurs. Respiratory: Lungs clear to auscultation bilaterally Gastrointestinal: Abdomen is soft, nontender Musculoskeletal: There is no pedal edema. Neurological:. Speech is normal. Skin: Skin is warm and dry - Labs CBC & Chem 7: 01/16/18 07:46 01/16/18 07:46 Labs: Abnormal Lab Results - Last 24 Hours (Table) 01/15/18 01/15/18 01/15/18 Range/Units 04:36 17:25 20:42 RBC (4.30-5.90) m/uL Hgb (13.0-17.5) gm/dL Hct (39.0-53.0) % RDW (11.5-15.5) % BUN (9-20) mg/dL POC Glucose (mg/dL) 120 H 245 H (75-99) mg/dL Iron 28 L (65-175) ug/dL Iron Saturation 10.61 L (15.00-50.00) 01/16/18 01/16/18 01/16/18 Range/Units 07:06 07:46 07:46 RBC 3.61 L (4.30-5.90) m/uL Hgb 10.0 L (13.0-17.5) gm/dL Hct 32.2 L (39.0-53.0) % RDW 16.9 H (11.5-15.5) % BUN 36 H (9-20) mg/dL POC Glucose (mg/dL) 100 H (75-99) mg/dL Iron (65-175) ug/dL Iron Saturation (15.00-50.00) 01/16/18 Range/Units 12:03 RBC (4.30-5.90) m/uL Hgb (13.0-17.5) gm/dL Hct (39.0-53.0) % RDW (11.5-15.5) % BUN (9-20) mg/dL POC Glucose (mg/dL) 191 H (75-99) mg/dL Iron (65-175) ug/dL Iron Saturation (15.00-50.00) Microbiology - Last 24 Hours (Table) 01/14/18 12:40 Anaerobic Culture - Preliminary Buttock 01/14/18 12:40 Gram Stain - Final Buttock Wound Culture - Preliminary Methicillin resist S. aureus 01/14/18 11:44 Blood Culture - Preliminary Blood No Growth after 48 hours 01/14/18 22:00 Urine Culture - Final Urine,Clean Catch Assessment and Plan Assessment: 1. Generalized weakness with falls likely secondary to his acute infection. Physical therapy was consulted. No evidence of pelvic fracture 2. Stage II infected decubitus ulcer: Wound cultures growing MRSA. .Currently on IV vancomycin Infectious disease consulted 3. Evidence of sepsis and septic shock present on admission with hypothermia and hypotension. Patient resuscitated with IV fluid 4. Diabetes mellitus: continue sliding scale insulin 5. History of essential hypertension. As stated above blood pressure is on the lower side we'll hold atenolol for now 6. Fecal impaction noted on pelvic x-ray. We'll give Colace and lactulose 7. Hyperlipidemia continue Lipitor 8. Gout resume allopurinol - Change IV fluid to 0.9 normal saline at 50 mL per hour
[2018-01-16 17:35] LABS: Glucose,Whole Blood 129 mg/dL (75-99)
[2018-01-16 21:27] LABS: Glucose,Whole Blood 132 mg/dL (75-99)
--- NOTE | 2018-01-17 00:56 | CONS ---
CONSULTATION DATE OF SERVICE: 12/31/2017. REASON FOR CONSULTATION: Infected pressure ulcer. HISTORY OF PRESENT ILLNESS: The patient is an 87-year-old male who has been brought into the ER with chief complaint is generalized weakness, confusion and falling. The patient's symptoms apparently had been going on for a few days prior to presentation to the hospital. On arrival to the ER, the patient was hypothermic with a temperature of 94.5, that did require admission to the ICU. He did have a normal white count. Further workup did show UA that has been negative. No chest x-ray has been done. He was noticed to have a sacral pressure ulcer and x-rays of the pelvic area did show no acute fracture and severe arthropathy of the hips. The patient was noticed to have a left gluteal pressure ulcer for which Infectious Disease was consulted for further recommendation regarding antibiotic therapy. Apparently, swab has been obtained from the skin and is currently showing MRSA. The patient is unsure exactly when he started having this pressure ulcer. When asked specifically for any chest pain, shortness of breath or cough he denies. No abdominal pain. No nausea, vomiting. No diarrhea. REVIEW OF SYSTEMS: Could not be obtained. The positive points have been mentioned in HPI. PAST MEDICAL HISTORY: Significant for diabetes mellitus, hypertension, hyperlipidemia, previous history of wound to the right hip and bilateral feet area, history of gout. PAST SURGICAL HISTORY: Bilateral cataract extraction, surgical excision of the sacral pressure ulcer, adenoidectomy and tonsillectomy. SOCIAL HISTORY: Current smoker. No drug use. FAMILY HISTORY: Father with history of diabetes. Mother history of cancer. ALLERGIES: No known drug allergies. MEDICATION: Medications include the patient is currently on Zyloprim, Lipitor, Colace, Lovenox, NovoLog, Levofloxacin, Synthroid, Narcan, Protonix, vancomycin. EXAMINATION: Blood pressure is 110/70 with a pulse of 69, temperature 96.7, he is 97% on room air. GENERAL DESCRIPTION: An elderly male lying in bed in no distress. No tachypnea or accessory muscle of respiration use. HEENT: Shows pallor. No scleral icterus. Oral mucosa is dry. NECK: Trachea central. No thyromegaly. LUNGS: Unlabored breathing. Clear to auscultation anteriorly. HEART: S1, S2. Regular rate and rhythm. ABDOMEN: Soft, no tenderness. No rigidity. EXTREMITIES: No edema of the feet. SKIN: Right gluteal area, he did have a pressure ulcer with slough tissue with very minimal surrounding erythema. No foul smelling drainage. NEUROLOGIC: The patient is awake, alert, oriented x2. Mood affect normal. LABS: Hemoglobin is 10, white count 4.6 with a BUN of 36, creatinine 0.91. Electrolytes have been normal. Urine has been negative. DIAGNOSTIC IMPRESSION AND PLAN: Patient with a left scrotal pressure ulcer, stage III, with slough tissue, minimal surrounding erythema. Culture positive for MRSA. No gram-negative 1. No evidence of any deep abscess. No evidence of any induration or fluctuation. PLAN: 1. Local wound care with Santyl followed by moist dressing. Keep the area off the pressure. 2. May consider short course of IV vancomycin, watching his kidney function closely. Discontinue Levaquin. 3. As the patient is known to be a patient of Dr. Ba, patient will be signed over to him on Thursday. Will continue to follow the patient over the weekend. MMODL / IJN: [id number] /
[2018-01-17] MEDS: SODIUM CHLORIDE 0.9% 1,000 ML IV SCH (06:30)
[2018-01-17] MEDS: LEVOTHYROXINE 25 MCG TAB PO SCH (06:31)
[2018-01-17 07:24] LABS: Glucose,Whole Blood 103 mg/dL (75-99)
[2018-01-17] MEDS ORDERED: PANTOPRAZOLE 40 MG TABLET PO SCH (07:30)
[2018-01-17] MEDS: INSULIN ASPART 100 UNIT/ML 1 ML 10 ML VIAL SQ SCH (07:59)
[2018-01-17] MEDS: DOCUSATE 100 MG CAP PO SCH (08:14)
[2018-01-17] MEDS: ENOXAPARIN 40 MG/0.4 ML SYRINGE SQ SCH (08:14)
[2018-01-17] MEDS: ATORVASTATIN 10 MG TAB PO SCH (08:14)
[2018-01-17] MEDS: ALLOPURINOL 300 MG TAB PO SCH (08:14)
[2018-01-17] MEDS: COLLAGENASE 250 UNIT/GM OINTMENT 30 GM TUBE TOPICAL SCH (08:15)
[2018-01-17] MEDS ORDERED: LEVOFLOXACIN 750 MG TAB PO SCH (09:00)
[2018-01-17 09:08] LABS: Anisocytosis Slight; Basophils % (A) 0 %; Eosinophils # (A) 0.1 k/uL (0-0.7); Eosinophils % (A) 3 %; HCT 34.8 % (39.0-53.0); HGB 10.8 gm/dL (13.0-17.5); Hypochromasia Moderate; Lymphocytes % (A) 21 %; MCH 27.7 pg (25.0-35.0); MCV 89.3 fL (80.0-100.0); Monocytes # (A) 0.3 k/uL (0-1.0); Monocytes % (A) 6 %; Neutrophils # (A) 3.1 k/uL (1.3-7.7); Neutrophils % (A) 66 %; Platelet Count 164 k/uL (150-450); RDW 16.8 % (11.5-15.5); WBC 4.7 k/uL (3.8-10.6)
[2018-01-17 09:19] LABS: Calcium 9.3 mg/dL (8.4-10.2); Phosphorus 3.8 mg/dL (2.5-4.5); Potassium 5.8 mmol/L (3.5-5.1)
[2018-01-17] MEDS: VANCOMYCIN 1,500 MG in SODIUM CHLORIDE 0.9% 250 ML IVPB SCH (11:15)
[2018-01-17 11:51] LABS: Glucose,Whole Blood 112 mg/dL (75-99)
[2018-01-17] MEDS ORDERED: PROPOFOL 100 ML IV ONE (12:11)
--- NOTE | 2018-01-17 12:43 | XR ---
EXAMINATION TYPE: XR chest 1V portable DATE OF EXAM: 01/17/2018 HISTORY: post intubation. REFERENCE: None.. FINDINGS: The patient has been intubated. ET tube is in satisfactory position with its tip approximat reji 4.6 cm from the kenny. There are bilateral effusions. There is bibasilar airspace disease. Heart size is upper limits of nor mal. IMPRESSION: 1. SATISFACTORY ET TUBE PLACEMENT. 2. BORDERLINE CARDIOMEGALY. 3. BILATERAL EFFUSIONS. 4. I CANNOT EXCLUDE BIBASILAR AIRSPACE DISEASE.
--- NOTE | 2018-01-17 12:45 | P.PN ---
Subjective Progress Note Date: 01/17/18 Principal diagnosis: Acute MRSA cellulitis and hypothermia. This is an 87-year-old white male with history of diabetes, hypertension, chronic decubitus ulcers, chronic cellulitis of lower extremities, normally followed at the [facility], patient had previous debridement by Dr. Ba. The patient was brought into the ER yesterday mostly with complaints of generalized weakness, confusion, and intermittent episodes of falling. Workup in the ER showed relatively normal CBC. Normal electrolytes. Normal renal profile. Normal urinalysis. Normal lactic acid. However the patient was significantly weak, and he was hypothermic. In spite of of warming blankets , his temp remained in the range of 93. Hence arrangements were made to admit the patient to the ICU and I was asked to see him on consultation. Patient denies any shortness of breath, no cough, no wheezing, he is not a greatest historian, but he seems to be generally weak, and slightly confused. Patient was actually admitted on 01/14/2018, and I saw him on consultation on , I took care of him in the ICU, and he was transferred to regular medical floor on 01/15/2018. Patient was treated for MRSA cellulitis, and his blood cultures were negative. The MRSA was cultured from his wound. Patient was all along hemodynamically stable, and he was treated on along with vancomycin for his MRSA cellulitis in his stage II infected decubitus ulcer. Today, on 01/17/2018, the ICU team was called to see the patient because he was not feeling well, and he was noted to be hypotensive by the nurse taking care of him. As he was talking to the nurses from the ICU, patient suddenly went to into a full cardiac arrest. CPR was initiated, and epinephrine was given. Please refer to the full code sheet. Patient was intubated, spontaneous circulation was noted, patient was transferred to the ICU, and he was on mechanical ventilation. However shortly after the patient arrived to the ICU, papers were presented to the nursing staff/advanced directors were in the patient never wanted to be coded, and never wanted to be on mechanical ventilation. Hence nurses were instructed to discontinue propofol, awaken the patient, extubated and placed on a nonrebreather mask. And follow comfort care measures following his previous advanced directors and wishes. Objective - Vital Signs Vital signs: Vital Signs Temp 97.1 F L 01/17/18 07:00 Pulse 75 01/17/18 07:00 Resp 24 01/17/18 07:00 BP 100/63 01/17/18 07:00 Pulse Ox 94 L 01/17/18 07:00 Intake & Output 01/16/18 01/17/18 01/17/18 18:59 06:59 18:59 Intake Total 320 Balance 320 Intake: Oral 320 Other: Voiding Method Incontinent Incontinent Incontinent # Voids 1 1 # Bowel Movements 1 - Exam Physical Exam: Revealed an 87-year-old white male on mechanical ventilation, sedated, on propofol. Which will be discontinued, and the patient will be placed on comfort care measures ENT: Neck is soft and supple. No neck masses, no JVD, slightly dry mucous membranes , no neck rigidity was appreciated. Endotracheal tube is intact. EYES: PERRLA, EOMI, no icterus. Moist mucous membranes PULMONARY: Diminished breath sounds at the bases no crackles or rhonchi or wheezes CARDIOVASCULAR: Normal S1 and S2, no S3 gallop, 2/6 systolic murmur thought the precordium. ABDOMEN: Soft, nontender, no megaly, no rebound, no guarding, positive bowel sounds. SKIN: Patient has a stage II wound on his left buttocks areas of cellulitis noted in the feet bilaterally. And multiple superficial ulcerations noted. NEUROLOGIC: Cannot be assessed, patient is on propofol sedated on mechanical ventilation. MUSCULOSKELETAL: Cannot be assessed patient is sedated on propofol LYMPHATICS: No significant lymphadenopathy is noted PSYCHIATRIC: Cannot be assessed. - Labs CBC & Chem 7: 01/17/18 08:42 01/17/18 08:42 Labs: Abnormal Lab Results - Last 24 Hours (Table) 01/16/18 01/16/18 01/17/18 Range/Units 17:03 21:18 07:16 RBC (4.30-5.90) m/uL Hgb (13.0-17.5) gm/dL Hct (39.0-53.0) % RDW (11.5-15.5) % Potassium (3.5-5.1) mmol/L Carbon Dioxide (22-30) mmol/L BUN (9-20) mg/dL Glucose (74-99) mg/dL POC Glucose (mg/dL) 129 H 132 H 103 H (75-99) mg/dL 01/17/18 01/17/18 01/17/18 Range/Units 08:42 08:42 11:31 RBC 3.90 L (4.30-5.90) m/uL Hgb 10.8 L (13.0-17.5) gm/dL Hct 34.8 L (39.0-53.0) % RDW 16.8 H (11.5-15.5) % Potassium 5.8 H (3.5-5.1) mmol/L Carbon Dioxide 31 H (22-30) mmol/L BUN 33 H (9-20) mg/dL Glucose 101 H (74-99) mg/dL POC Glucose (mg/dL) 112 H (75-99) mg/dL Microbiology - Last 24 Hours (Table) 01/14/18 12:40 Gram Stain - Final Buttock Wound Culture - Preliminary Methicillin resist S. aureus 01/14/18 12:40 Anaerobic Culture - Preliminary Buttock 01/14/18 11:44 Blood Culture - Preliminary Blood No Growth after 48 hours 01/14/18 22:00 Urine Culture - Final Urine,Clean Catch Assessment and Plan Assessment: Impression: 1 acute cardiac arrest and acute hypoxic respiratory failure most likely secondary to MRSA cellulitis and sepsis. Negative blood cultures noted since admission. 2 acute hypoxic respiratory failure secondary to cardiac arrest 3 acute generalized weakness, multifactorial, however I believe the patient clearly has ongoing cellulitis related to his stage II infected decubitus ulcer and cellulitis of the feet bilaterally. 4 Multiple medical problems including diabetes, hypertension, medical debility, history of gout, and remote smoking history. Recommendation: Considering the patient's wishes and advanced directives, patient will be made comfort care, and he will be extubated shortly. Critical care time is 32 minutes. Time with Patient: Greater than 30
[2018-01-17] MEDS ORDERED: ACETAMINOPHEN SUPPOSITORY 650 MG SUPP RECTAL PRN (13:50)
[2018-01-17] MEDS ORDERED: MORPHINE SULFATE (100 MG/2 ML) 100 MG in SODIUM CHLORIDE 0.9% 100 ML IV SCH (14:00)
[2018-01-17 14:17] VITALS: TEMP 97.7
[2018-01-17] MEDS ORDERED: LORazepam 2 MG/ML INJ IV PRN (14:53)
--- NOTE | 2018-01-17 14:53 | P.PN ---
Subjective Patient was found to be more confused and hypotensive this morning. Rapid response team called to evaluate him and by the time they got there he was found to be in cardiac arrest. CPR was initiated and patient was given epinephrine with ROSC patient was intubated and admitted to the ICU. Unfortunately in the process patient was noted to have documentation that he would like to be DNR/DNI in his chart. History of a part of finance attorney who was a friend of the patient was contacted by nursing staff and was informed about the entire situation. His niece was also contacted. They elected to terminally wean the patient based on his wishes that he would not Want to be intubated. Patient was extubated and in a while ago. He is currently in the intensive care unit awaiting being enrolled in hospice. Objective - Vital Signs Vital signs: Vital Signs Temp 97.7 F 01/17/18 12:00 Pulse 96 01/17/18 14:00 Resp 31 H 01/17/18 14:00 BP 117/71 01/17/18 14:00 Pulse Ox 92 L 01/17/18 14:00 Intake & Output 01/16/18 01/17/18 01/17/18 18:59 06:59 18:59 Intake Total 320 Balance 320 Intake: Oral 320 Other: Voiding Method Incontinent Incontinent Indwelling Catheter # Voids 1 1 # Bowel Movements 1 - Exam General: The patient is obtunded and is having agonal breathing Eye: there is normal conjunctiva bilaterally. Neck: The neck is supple, there is no JVD. Cardiovascular: Normal S1-S2, no S3-S4, no murmurs. Respiratory: Lungs clear to auscultation bilaterally Gastrointestinal: Abdomen is soft, nontender Musculoskeletal: There is +1 pedal edema. Skin: Skin is warm and dry - Labs CBC & Chem 7: 01/17/18 08:42 01/17/18 08:42 Labs: Abnormal Lab Results - Last 24 Hours (Table) 01/16/18 01/16/18 01/17/18 Range/Units 17:03 21:18 07:16 RBC (4.30-5.90) m/uL Hgb (13.0-17.5) gm/dL Hct (39.0-53.0) % RDW (11.5-15.5) % Potassium (3.5-5.1) mmol/L Carbon Dioxide (22-30) mmol/L BUN (9-20) mg/dL Glucose (74-99) mg/dL POC Glucose (mg/dL) 129 H 132 H 103 H (75-99) mg/dL 01/17/18 01/17/18 01/17/18 Range/Units 08:42 08:42 11:31 RBC 3.90 L (4.30-5.90) m/uL Hgb 10.8 L (13.0-17.5) gm/dL Hct 34.8 L (39.0-53.0) % RDW 16.8 H (11.5-15.5) % Potassium 5.8 H (3.5-5.1) mmol/L Carbon Dioxide 31 H (22-30) mmol/L BUN 33 H (9-20) mg/dL Glucose 101 H (74-99) mg/dL POC Glucose (mg/dL) 112 H (75-99) mg/dL Microbiology - Last 24 Hours (Table) 01/14/18 11:44 Blood Culture - Preliminary Blood No Growth after 72 hours 01/14/18 12:40 Gram Stain - Final Buttock Wound Culture - Preliminary Methicillin resist S. aureus 01/14/18 12:40 Anaerobic Culture - Preliminary Buttock 01/14/18 22:00 Urine Culture - Final Urine,Clean Catch Assessment and Plan Assessment: This is a 87-year-old with complex past medical history noted below who had an episode of cardiac arrest on 01/17/2018 requiring CPR and IV epinephrine with ROSC. Patient was intubated and transferred to the intensive care unit. Unfortunately in the process patient was noted to have documentation that he would like to be DNR/DNI in his chart. History of a part of finance attorney who was a friend of the patient was contacted by nursing staff and was informed about the entire situation. His niece was also contacted. They elected to terminally wean the patient based on his wishes that he would not Want to be intubated. Patient was extubated and in a while ago. He is currently in the intensive care unit awaiting being enrolled in hospice. Below is a list of his medical problems: 1. Stage II infected decubitus ulcer 2. Severe sepsis with septic shock on admission 3. Type 2 diabetes mellitus 4. Generalized weakness with physical debility 5. Essential hypertension 6. History of chronic gout 7. Cardiac arrest/acute respiratory failure Patient will be started on IV morphine drip for comfort. Awaiting hospice enrollment.
--- NOTE | 2018-01-17 14:57 | CONS ---
CONSULTATION DATE OF SERVICE: 01/17/2018. HISTORY: Carroll is an 87-year-old gentleman who was admitted to the hospital initially with confusion, weakness, recurrent falls, and was hypothermic. While on the med/surg floor, the patient became more confused and had cardiorespiratory arrest for which he got intubated and was brought to the ICU. Cardiology has been consulted for the same. PAST MEDICAL HISTORY: Significant for diabetes, hypertension, dyslipidemia. PAST SURGICAL HISTORY: Significant for tonsillectomy and decubitus ulcers. MEDICATIONS: At home include atenolol, metformin, atorvastatin, and Zyloprim. ALLERGIES: There are no known drug allergies. FAMILY HISTORY, SOCIAL HISTORY, REVIEW OF SYSTEMS: I am unable to obtain from the patient. PHYSICAL EXAMINATION: On exam, the patient is intubated on vent and sedated. Heart rate is 75 beats, blood pressure is 100/60, respirations 18. Chest exam reveals diminished air entry at the bases. Heart exam reveals first and second heart sounds. No gallop. Abdomen is soft. Exam of the extremities did not reveal any edema. Peripheral pulses are palpable. LABS: Potassium is 5.8, creatinine is 0.9, hemoglobin is 10.8. I do not have any EKG on him, I will obtain one. I do not have an echo, will obtain one. ASSESSMENT: 1. Status post cardiac respiratory arrest. 2. Decubitus ulcers. 3. Possible sepsis. 4. History of confusion and recurrent falls. PLAN: We will continue with supportive care. We will obtain a 2D echo. Prognosis is guarded. Please give Kayexalate for the hyperkalemia. MMODL / IJN: [id number] /
[2018-01-17 15:40] VITALS: BP 110/62; PULSE 85; RESP 23
[2018-01-17] MEDS ORDERED: VANCOMYCIN TROUGH DUE 1 EACH MISC MISCELLANE ONE (23:00)
--- NOTE | 2018-01-21 12:57 | P.DS ---
Providers Date of admission: 01/14/18 14:45 Attending physician: Destiny Mathias [facility] Course: This is a 87-year-old with complex past medical history noted below who had an episode of cardiac arrest on 01/17/2018 requiring CPR and IV epinephrine with ROSC. Patient was intubated and transferred to the intensive care unit. Unfortunately in the process patient was noted to have documentation that he would like to be DNR/DNI in his chart. History of a part of policy director who was a friend of the patient was contacted by nursing staff and was informed about the entire situation. His niece was also contacted. They elected to terminally wean the patient based on his wishes that he would not Want to be intubated. Patient was extubated and in a while ago. He is currently in the intensive care unit awaiting being enrolled in hospice. Below is a list of his medical problems: 1. Stage II infected decubitus ulcer 2. Severe sepsis with septic shock on admission 3. Type 2 diabetes mellitus 4. Generalized weakness with physical debility 5. Essential hypertension 6. History of chronic gout 7. Cardiac arrest/acute respiratory failure Patient soon after terminally weaning and starting comfort measures. Please refer to nursing staff documentation for exact time of . Plan - Discharge Summary Discharge Rx Participant: Yes New Discharge Prescriptions: No Action Atenolol 100 mg PO DAILY sitaGLIPtin PHOS/metFORMIN HCL [Janumet 50-1,000 mg Tablet] 1 tab PO BID Allopurinol [Zyloprim] 300 mg PO DAILY Atorvastatin [Lipitor] 10 mg PO DAILY Discharge Medication List Allopurinol [Zyloprim] 300 mg PO DAILY 04/06/17 [History] Atenolol 100 mg PO DAILY 04/06/17 [History] sitaGLIPtin PHOS/metFORMIN HCL [Janumet 50-1,000 mg Tablet] 1 tab PO BID [History] Atorvastatin [Lipitor] 10 mg PO DAILY 01/14/18 [History] Follow up Appointment(s)/Referral(s): Washington Hatfield MD [Primary Care Provider] - 1-2 days Discharge Disposition: - Preliminary Cause of Preliminary Cause of : Severe sepsis and respiratory failure
== END 2018-01-17 19:29 | disposition expired | DRG 871 ==
LOC: EC 10:50 → 6ICU 14:45 → 4MS4W 01-15 19:27 → 6ICU 01-17 11:49
PROVIDERS: ADMIT Internal Medicine; ATTEND Internal Medicine
PROC: 0BH18EZ Insertion of Endotracheal Airway into Trachea, Via Natural or Artificial Opening Endoscopic (ICD-10-PCS; principal; 2018-01-17)
PROC: 5A1935Z Respiratory Ventilation, Less than 24 Consecutive Hours (ICD-10-PCS; principal; 2018-01-17)
DX: A41.9 Sepsis, unspecified organism (principal); J96.01 Acute respiratory failure with hypoxia; R65.21 Severe sepsis with septic shock; L89.152 Pressure ulcer of sacral region, stage 2; L89.322 Pressure ulcer of left buttock, stage 2; L97.519 Non-pressure chronic ulcer of other part of right foot with unspecified severity; E11.9 Type 2 diabetes mellitus without complications; L03.119 Cellulitis of unspecified part of limb; I46.9 Cardiac arrest, cause unspecified; E78.5 Hyperlipidemia, unspecified; F17.200 Nicotine dependence, unspecified, uncomplicated; B95.62 Methicillin resistant Staphylococcus aureus infection as the cause of diseases classified elsewhere; I10 Essential (primary) hypertension; K56.41 Fecal impaction; M1A.9XX0 Chronic gout, unspecified, without tophus (tophi); R29.6 Repeated falls; T68.XXXA Hypothermia, initial encounter; X31.XXXA Exposure to excessive natural cold, initial encounter; Z51.5 Encounter for palliative care; Z66 Do not resuscitate; Z79.4 Long term (current) use of insulin; Z79.899 Other long term (current) drug therapy; Z83.3 Family history of diabetes mellitus; Z98.41 Cataract extraction status, right eye; Z98.42 Cataract extraction status, left eye; Z79.84 Long term (current) use of oral hypoglycemic drugs; L97.529 Non-pressure chronic ulcer of other part of left foot with unspecified severity
CPT/HCPCS: 36415; 71045; 72170; 80048; 80053; 81003; 82533; 82550; 82553; 82728; 83036; 83540; 83550; 83605; 83735; 84100; 84439; 84443; 85025; 85027; 85610; 85730; 87040; 87070; 87075; 87077; 87086; 87186; 87205; 90732; 94002; 96361; 96365; 99285